=== PATIENT | female | born 1970 | race Caucasian/White ===

== ENCOUNTER 2018-02-26 16:17 | Emergency (ER) | payer BC ==
[2018-02-26 16:59] LABS: Bilirubin Negative (Negative); Blood, Urine Moderate (Negative); Clarity Clear (Clear); Glucose, Urine (Dipstick) Negative (Negative); Leukocyte Negative (Negative); Nitrite Negative (Negative); Protein, Urine (Dipstick) Negative (Neg-Trace); Urobilinogen 0.2 mg/dL (0.2-1.0)
[2018-02-26 17:10] LABS: Bacteria/HPF 1+ HPF (None Seen); Crystals/HPF RARE CA OXALATE HPF (Negative); Squamous Epithelial 0-3 HPF (0-3); WBC/HPF 0-3 HPF (0-3)
[2018-02-26] MEDS ORDERED: Promethazine HCl 25 MG/ML VIAL ONE (17:11)
[2018-02-26] MEDS ORDERED: Ondansetron ODT 4 MG TAB ONE (17:12)
[2018-02-26 17:35] LABS: Band 3 % (5-11); Hemoglobin 13.2 g/dL (12.0-16.0); Lymphocytes 41 % (21-51); MDiff Complete? YES; Mean Corpuscular HGB CONC 35.1 g/dL (32.0-36.0); Mean Corpuscular Hemoglobin 31.6 pg (27.0-31.0); Mean Corpuscular Volume 90.1 fl (81.0-99.0); Mean Platelet Volume 7.2 fL (7.4-10.4); Monocytes 5 % (0-10); Neutrophil 49 % (42-75); PLT Morphology Comment Appears Adequate; Platelet Count 188 thou/uL (130-400); RBC Distribution Width 11.4 % (11.5-14.5); Reactive Lymphocytes 1 % (0-10); Red Blood Cell (RBC) Count 4.18 mill/uL (4.20-5.40); White Blood Cell (WBC) Count 6.9 thou/uL (4.8-10.8)
[2018-02-26 17:38] LABS: Anion Gap 15 mmol/L (10-20); BUN (Urea Nitrogen) 11 mg/dL (7.0-18.7); Calc. Creatinine Clearance 0 mL/min (70-130); Carbon Dioxide 23 mmol/L (22-29); Chloride 106 mmol/L (98-107); Estimated GFR-MDRD 81; Glucose 87 mg/dL (70-105); Potassium 3.7 mmol/L (3.5-5.1); Sodium 140 mmol/L (136-145)
--- NOTE | 2018-02-26 18:08 | CT ---
CT OF THE ABDOMEN AND PELVIS WITHOUT CONTRAST: 02/26/18 COMPARISON: None. HISTORY: Right sided abdominal pain that radiates to the right flank with nausea and vomiting. This began yest erday. TECHNIQUE: Multiple contiguous axial images were obtained in a CT of the abdomen and pelvis without contrast. Co solis reformats were performed. FINDINGS: There is a nonobstructing calcification in the right renal pelvis measuring 7 mm in size. There is sl ight enlargement of the renal pelvis and proximal aspect of the right ureter. However, no calcificati on is see in the right ureter or within the urinary bladder. No left sided renal calcifications are s een. No left hydronephrosis is present. The patient is status post cholecystectomy. The liver, adrenal glands, spleen, and pancreas are unrem arkable, although evaluation is limited without IV contrast. The large and small bowel are unremarkable. No free air, free fluid, or stranding changes are seen in the abdomen or pelvis. Patient is status post hysterectomy. The large and small bowel are unremarkable. The appendix is norm al. No abdominal or pelvic lymphadenopathy are seen. There are degenerative changes in the spine. The visualized inferior thorax and abdominal wall soft t issues are unremarkable. IMPRESSION: 1. Nonobstructing right renal calcification. 2. There is prominence of the right renal pelvis and proximal right ureter. No obvious calcifica tion is seen within the right ureter. This could be secondary to recently passed calcification. POS: [facility]
== END 2018-02-26 18:39 | disposition home or self-care (01) ==
LOC: SCSER 16:17
DX: N20.0 Calculus of kidney (principal); J45.909 Unspecified asthma, uncomplicated; F41.9 Anxiety disorder, unspecified
CPT/HCPCS: 36415; 74176; 80048; 81003; 81015; 85025; 96365; J2550; Q0162

== ENCOUNTER 2018-03-19 11:30 | Outpatient (CLI) | payer BC ==
[2018-03-19 12:27] LABS: Hemoglobin 13.6 g/dL (12.0-16.0); Mean Corpuscular HGB CONC 33.8 g/dL (32.0-36.0); Mean Corpuscular Hemoglobin 31.4 pg (27.0-31.0); Mean Corpuscular Volume 92.9 fl (81.0-99.0); Platelet Count 233 thou/uL (130-400); RBC Distribution Width 11.6 % (11.5-14.5); Red Blood Cell (RBC) Count 4.33 mill/uL (4.20-5.40); White Blood Cell (WBC) Count 8.1 thou/uL (4.8-10.8)
[2018-03-19 12:29] LABS: Bilirubin Negative (Negative); Blood, Urine Large (Negative); Clarity CLEAR (Clear); Glucose, Urine (Dipstick) Negative (Negative); Leukocyte Negative (Negative); Nitrite Negative (Negative); Protein, Urine (Dipstick) Negative (Neg-Trace); Specific Gravity, Urine 1.015 (1.002-1.036); Urobilinogen 0.2 mg/dL (0.2-1.0)
[2018-03-19 12:35] LABS: Bacteria/HPF None Seen HPF (None Seen); Hyaline Casts/LPF 0-3 HYALINE CAST LPF (0-3 Hyaline); Pathc Cast-AUWi Flag 0.14 (0-2.49); RBC/HPF 0-3 HPF (0-3); Squamous Epithelial 0-3 HPF (0-3); WBC/HPF 0-3 HPF (0-3)
[2018-03-19 12:37] LABS: INR-International Normal Ratio 0.9; PTT 25.8 SEC (22.9-36.1); Prothrombin Time 12.3 SEC (12.0-14.7)
[2018-03-19 12:51] LABS: Anion Gap 10 mmol/L (10-20); BUN (Urea Nitrogen) 12 mg/dL (7.0-18.7); Calc. Creatinine Clearance 0 mL/min (70-130); Calcium 9.3 mg/dL (7.8-10.44); Carbon Dioxide 27 mmol/L (22-29); Chloride 105 mmol/L (98-107); Estimated GFR-MDRD 80; Glucose 65 mg/dL (70-105); Sodium 138 mmol/L (136-145)
== END 2018-03-19 11:31 | disposition home or self-care (01) ==
LOC: LABBT 11:30
PROVIDERS: ATTEND Urology
DX: Z01.818 Encounter for other preprocedural examination (principal); N20.0 Calculus of kidney
CPT/HCPCS: 80048; 81001; 85027; 85610; 85730; 87086; 93005; 93010

== ENCOUNTER → 2018-04-01 | Day surgery (SDC) | payer BC ==
[2018-03-19 11:53] VITALS: BMI 32.4
[~2018-04-01] MED LIST: Dexamethasone 20 MG/5 ML VIAL ONE; Fentanyl 100 MCG/2 ML VIAL ONE; HYDROmorphone 0.5 MG/0.5 ML SYRINGE ONE; Iothalamate Meglumine 60% 50 ML VIAL FS ONE; Ketorolac Tromethamine 30 MG/ML VIAL ONE; Levofloxacin 500 mg/D5W 100 ml Premix Bag ONE; Lidocaine 1% PF 5 ML VIAL ONE; Midazolam HCl 2 mg/2 ml Vial ONE; Ondansetron HCl/PF 4 MG/2 ML Vial ONE; PROPOFOL 200 MG/20 ML VIAL ONE; Promethazine HCl 25 MG/ML VIAL ONE; Scopolamine 1.5 mg/72 hour Patch ONE; ePHEDrine/0.9% NaCl/PF SYRINGE 50 mg/10 ml ONE
--- NOTE | 2018-04-01 15:21 | OP ---
DATE OF PROCEDURE: 04/01/2018 SERVICE: Urology. SURGEON: Alejo Noyola M.D. PREOPERATIVE DIAGNOSIS: Right renal stone. POSTOPERATIVE DIAGNOSIS: Right renal stone. PROCEDURES PERFORMED: Right ureteroscopy, laser lithotripsy, basket extraction of stone, placement o f a 6 x 24 double-J stent. INDICATIONS FOR PROCEDURE: Mrs. Almonte is a 47-year-old white female who has previously seen me for u reteral calculi which I have been treated already. She has a remaining right renal stone which measu res 7 mm. This is relatively large and probably would not pass on its own. After discussing options , she elected to go for ureteroscopy for removal of the stone. Risks and benefits have been discusse d and she has agreed to proceed forward. DESCRIPTION OF PROCEDURE: After identification of armband and verification of consent, the patient w as brought back to the operating room. She underwent general anesthesia with an LMA. She was then p laced in dorsal lithotomy position and prepped and draped in usual sterile fashion. After appropriat e timeout, a lubricated 22 [place] rigid cystoscope was introduced per urethra into the bladder. Atte ntion was turned to the right ureteral orifice which was in its orthotopic location. There was a mil d cystocele noted, but no other major abnormalities of the bladder. The right UO was intubated with a 0.035 sensor wire up to the level of the renal pelvis. The cystoscope was then removed leaving the sensor wire in place. A dual-lumen catheter was advanced over the sensor wire up to the level of th e proximal ureter. An Amplatz Super Stiff wire was then placed through the second lumen of the dual lumen channel up to the level of the renal pelvis and then the dual lumen removed. The sensor wire w as then affixed to the drapes as a safety wire. A 11/13 x 36 cm ureteral access sheath was then adva nced up the ureter over the Super Stiff wire up to the level of the proximal ureter. The inner cannu la and the Super Stiff wire were then removed leaving the outer sheath in place the sensor wire as a safety wire. The flexible digital ureteroscope was then passed through the ureteral access sheath up to the level of the renal pelvis. The stone was encountered in the midpole. A 200-micron laser fib er was used to fragment the stone into smaller pieces and individual pieces were basketed out using a 1.9 [place] 0 tip nitinol basket. Upon completion, all fragments above 1 mm removed. There was a ve ry small dust fragments remaining. Full pyeloscopy did not demonstrate any other calculi. Pull back ureteroscopy was employed and no stones were found within the ureter. The ureteroscope and sheath w ere then removed and the cystoscope was then backloaded over the sensor wire back into the bladder. A 6 x 24 double-J stent was then advanced over the sensor wire up to the level of the renal pelvis. The wire was then removed leaving a good curl in the pelvis and good curl in the bladder. The string was left intact on the stent and the cystoscope was used to drain the bladder and then removed. The string was then affixed to the patient's thigh using an Op-Site. patient was then taken out of lith otomy, awakened and taken to PACU for recovery in stable condition. COMPLICATIONS: None. ESTIMATED BLOOD LOSS: Minimal. RETAINED TUBES AND DRAINS: A 6 x 24 double-J stent on the right. SPECIMENS: Stone for stone analysis. DISPOSITION: The patient will be discharged home and we have asked to remove her stent by gently pul ling the string next Saturday. She can then follow up with me in about 4-6 weeks with a renal ultrasou nd at which time, we will go over further stone prevention.
== END ==
LOC: SDC 09:50
PROVIDERS: ATTEND Urology
PROC: 0TF38ZZ Fragmentation in Right Kidney Pelvis, Via Natural or Artificial Opening Endoscopic (ICD-10-PCS; principal; 2018-04-01)
PROC: 0T768DZ Dilation of Right Ureter with Intraluminal Device, Via Natural or Artificial Opening Endoscopic (ICD-10-PCS; principal; 2018-04-01)
DX: N20.0 Calculus of kidney (principal); E66.01 Morbid (severe) obesity due to excess calories; J45.909 Unspecified asthma, uncomplicated; D64.9 Anemia, unspecified; Z79.899 Other long term (current) drug therapy; Z88.5 Allergy status to narcotic agent; Z88.8 Allergy status to other drugs, medicaments and biological substances; Z91.018 Allergy to other foods; Z68.32 Body mass index [BMI] 32.0-32.9, adult
CPT/HCPCS: 82365; 88300; 96374; 96375; C1758; C1769; J1100; J1170; J1885; J1956; J2001; J2250; J2405; J2550; J2704; J3010; Q9961

== ENCOUNTER 2018-05-09 12:56 | Outpatient (CLI) | payer BC | END 2018-05-09 12:57 | disposition home or self-care (01) | LOC: BICULT 12:56 | PROVIDERS: ATTEND Urology | DX: N20.0 Calculus of kidney (principal) | CPT/HCPCS: 76770 ==